=== PATIENT | male | born 1975 | race Caucasian/White ===

== ENCOUNTER 2020-01-22 08:01 | Day surgery (SDC) | payer OTHER ==
[2020-01-20 12:12] VITALS: BMI 25.7
[~2020-01-22 08:01] MED LIST: LACTATED RINGERS 1,000 ML IV SCH
[2020-01-22 08:22] VITALS: RESP 16; TEMP 97.6
[2020-01-22] MEDS ORDERED: LIDOCAINE 1% (10MG/ML) FOR IV START INTRADERMA ONE (08:29)
[2020-01-22] MEDS ORDERED: PROPOFOL 10 MG/ML 20 ML VIAL IV ONE (09:10)
[2020-01-22] MEDS ORDERED: LIDOCAINE 1% INJ 10MG/ML (20 ML MDV) ONE (09:10)
--- NOTE | 2020-01-22 09:25 | P.PCN ---
Date of Procedure: 01/22/20 Procedure(s) Performed: BRIEF HISTORY: Patient is a 45-year-old pleasant male scheduled for an elective colonoscopy as a part of evaluation of intermittent rectal bleeding for the last few months duration. PROCEDURE PERFORMED: Colonoscopy with snare polypectomy. PREOPERATIVE DIAGNOSIS: Intermittent rectal bleeding. IV sedation per Anesthesia. PROCEDURE: After informed consent was obtained, the patient, was brought into the endoscopy unit. IV sedation was administered by Anesthesia under continuous monitoring. Digital rectal examination was normal. Initially the Olympus CF-160 flexible video colonoscope was then inserted in the rectum, gradually advanced into the cecum without any difficulty. Careful examination was performed as the scope was gradually being withdrawn. Ileocecal valve and the appendiceal orifice were visualized and appeared normal. Prep was excellent. The base of cecum there was a 7 mm polyp that was removed by snare polypectomy. Mucosa of the cecum, ascending colon, transverse colon, descending colon, sigmoid colon, and rectum appeared normal. The rectum there was a 3 mm polyp that was removed by snare polypectomy. Retroflexion was performed in the rectum and all internal hemorrhoids were seen. The patient tolerated the procedure well. IMPRESSION: 7 mm cecal polyp status post polypectomy 5 mm rectal polyp status post polypectomy Small internal hemorrhoids RECOMMENDATIONS: Findings of this examination were discussed with the patientas well as a family. Was advised to follow with the biopsy results. If the biopsy shows an adenoma he can have a repeat colonoscopy in 5 years].
[2020-01-22 09:46] VITALS: BP 128/83; PULSE 59
== END 2020-01-22 10:02 | disposition home or self-care (01) ==
LOC: ORWHC2ENDO 08:01
PROVIDERS: ATTEND Internal Medicine Gastroenterology
DX: D12.0 Benign neoplasm of cecum (principal); K62.1 Rectal polyp; K64.8 Other hemorrhoids; I10 Essential (primary) hypertension; Z79.899 Other long term (current) drug therapy; Z88.6 Allergy status to analgesic agent
CPT/HCPCS: 88305; 45385; J2001; J2704

== ENCOUNTER 2020-02-18 09:07 | Observation (INO) | payer OTHER ==
[2020-02-18 09:42] LABS: Basophils % (A) 1 %; Eosinophils # (A) 0.1 k/uL (0-0.7); Eosinophils % (A) 2 %; HCT 45.5 % (39.0-53.0); HGB 15.4 gm/dL (13.0-17.5); Lymphocytes # (A) 0.5 k/uL (1.0-4.8); Lymphocytes % (A) 7 %; MCH 30.9 pg (25.0-35.0); MCV 91.1 fL (80.0-100.0); Mean Platelet Volume 6.6; Monocytes # (A) 0.2 k/uL (0-1.0); Monocytes % (A) 3 %; Neutrophils # (A) 6.6 k/uL (1.3-7.7); Neutrophils % (A) 88 %; Platelet Count 175 k/uL (150-450); RBC 4.99 m/uL (4.30-5.90); RDW 13.1 % (11.5-15.5); WBC 7.5 k/uL (3.8-10.6)
--- NOTE | 2020-02-18 09:47 | XR ---
EXAMINATION TYPE: XR chest 2V DATE OF EXAM: 02/18/2020 COMPARISON: NONE HISTORY: Shortness of breath and chest pain. TECHNIQUE: Frontal and lateral views of the chest are obtained. FINDINGS: Overlying EKG leads. There is no focal air space opacity, pleural effusion, or pneumothora x seen. The cardiac silhouette size is within normal limits. The osseous structures are intact. IMPRESSION: No acute cardiopulmonary process.
[2020-02-18 09:52] LABS: ALT 47 U/L (4-49); AST 37 U/L (17-59); African American GFR (CKD) >90 (>60 ml/min/1.73 sqM); Albumin 4.6 g/dL (3.5-5.0); Alkaline Phosphatase 58 U/L (38-126); Anion Gap 6 mmol/L; Blood Urea Nitrogen 20 mg/dL (9-20); Calcium 9.4 mg/dL (8.4-10.2); Carbon Dioxide 33 mmol/L (22-30); Chloride 99 mmol/L (98-107); Glucose 108 mg/dL (74-99); Lipase 116 U/L (23-300); Non-African American GFR(CKD) 78 (>60 ml/min/1.73 sqM); Potassium 3.9 mmol/L (3.5-5.1); Sodium 138 mmol/L (137-145); Total Bilirubin 0.7 mg/dL (0.2-1.3); Total Protein 7.3 g/dL (6.3-8.2)
--- NOTE | 2020-02-18 10:08 | ED ---
Chest Pain HPI - General Chief Complaint: Chest Pain Stated Complaint: Chest Pain, Nausea Time Seen by Provider: 02/18/20 09:13 Source: patient, RN notes reviewed Mode of arrival: ambulatory Limitations: no limitations - History of Present Illness Initial Comments: 45-year-old male presents emergency Department with chief complaint of chest pain. Patient states it started at 7 AM. Patient states he started a sudden onset of of sharp pressure-like pain left-sided distress. Patient states that he became very diaphoretic nauseated and felt short of breath at that time. He still has mild pain but states his shortness of breath has resolved. Patient does have a history of hypertension which she takes 5 mg of amlodipine denies any history of diabetes, hyperlipidemia is a nonsmoker. There is some family heart disease noted. Patient had no prior stress test. Patient states is an ALLERGY to aspirin. - Related Data Home Medications Medication Instructions Recorded Confirmed Dextroamphetamine/Amphetamine 30 mg PO DAILY 01/20/20 02/18/20 [Adderall] amLODIPine [Norvasc] 5 mg PO HS 01/20/20 02/18/20 Calcium/Magnesium/Zinc 1 tab PO DAILY 02/18/20 02/18/20 [Padovpu-Nuqfunjba-Ehrm Tablet] Cholecalciferol [Vitamin D3 (25 1,000 unit PO DAILY 02/18/20 02/18/20 Mcg = 1000 Iu)] Multivitamins, Thera [Multivitamin 1 tab PO DAILY 02/18/20 02/18/20 (formulary)] Allergies Allergy/AdvReac Type Severity Reaction Status Date / Time aspirin Allergy Unknown Verified 02/18/20 09:53 Childhood Review of Systems ROS Statement: Those systems with pertinent positive or pertinent negative responses have been documented in the HPI. ROS Other: All systems not noted in ROS Statement are negative. EKG Findings - EKG Comments: EKG Findings:: EKG performed at 9:19 normal sinus rhythm rate of 68. 170 QS 98 QT/QTC 424/[address] elevation or depression. Past Medical History Past Medical History: Hypertension Additional Past Medical History / Comment(s): ABD. PAIN WITH SOME BLOOD IN STOOL History of Any Multi-Drug Resistant Organisms: None Reported Additional Past Surgical History / Comment(s): HX FACIAL FX TO CHEEK BONE Past Anesthesia/Blood Transfusion Reactions: No Reported Reaction Past Psychological History: ADD/ADHD Smoking Status: Never smoker Past Alcohol Use History: None Reported Past Drug Use History: None Reported - Past Family History Father Family Medical History: Cancer Son(s) Family Medical History: Cancer General Exam Limitations: no limitations General appearance: alert, in no apparent distress Head exam: Present: atraumatic, normocephalic, normal inspection Eye exam: Present: normal appearance, PERRL, EOMI. Absent: scleral icterus, conjunctival injection, periorbital swelling ENT exam: Present: normal exam, normal oropharynx, mucous membranes moist Neck exam: Present: normal inspection, full ROM. Absent: tenderness, meningismus, lymphadenopathy Respiratory exam: Present: normal lung sounds bilaterally. Absent: respiratory distress, wheezes, rales, rhonchi, stridor Cardiovascular Exam: Present: regular rate, normal rhythm, normal heart sounds. Absent: systolic murmur, diastolic murmur, rubs, gallop, clicks GI/Abdominal exam: Present: soft, normal bowel sounds. Absent: distended, tenderness, guarding, rebound, rigid Extremities exam: Absent: pedal edema, calf tenderness Neurological exam: Present: alert, oriented X3 Skin exam: Present: warm, dry, intact, normal color. Absent: rash Course Vital Signs 02/18/20 09:09 Temperature 98.5 F Pulse Rate 74 Respiratory 18 Rate Blood Pressure 131/79 O2 Sat by Pulse 100 Oximetry Chest Pain MDM - MDM 45-year-old presented for chest pain EKG is a unremarkable, first troponin is negative though symptoms started 2 hours prior arrival. Patient does have risk factors. Patient will be kept for cardiac rule out, cardiology evaluation, echocardiogram Disposition Clinical Impression: Chest pain Disposition: ADMITTED IP TO THIS HOSP Condition: Fair Referrals: Afshin Cao MD [Primary Care Provider] - 1-2 days
[2020-02-18 10:10] LABS: D-Dimer 0.31 mg/L FEU (<0.60); INR 0.9 (<1.2); Partial Thromboplastin Time 22.1 sec (22.0-30.0); Prothrombin Time 9.6 sec (9.0-12.0)
[2020-02-18] MEDS ORDERED: HEPARIN SODIUM,PORCINE 5,000 UNIT/ML 1 ML VIAL IV PRN (10:35)
[2020-02-18] MEDS ORDERED: HEPARIN SODIUM,PORCINE 5,000 UNIT/ML 1 ML VIAL IV ONE (10:35)
[2020-02-18] MEDS ORDERED: NITROGLYCERIN SL TABS 0.4 MG TAB SUBLINGUAL PRN (10:35)
[2020-02-18] MEDS ORDERED: HEPARIN SOD,PORK IN 0.45% NACL 25,000 UNIT in 0.45% NACL 1 250ML.BAG IV SCH (10:45)
[2020-02-18 11:19] VITALS: RESP 16; TEMP 98.1
--- NOTE | 2020-02-18 12:11 | P.CRDCN ---
History of Present Illness History of present illness: HISTORY OF PRESENTING ILLNESS This is a pleasant 45-year-old male past medical history significant for hypertension, ADD and family history of coronary artery disease. He states his dad has had a couple of stents starting in his mid 60s.. 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 We have been asked to see in consultation for chest pain. He states he woke up this morning in his usual state of health and ate 2 hard boiled eggs and 2 sausage links. About 30-40 minutes later he had an acute onset of intense tight and sharp pain under his left breast associated with nausea, shortness of breath and diaphoresis. He states he had to curl up into a ball the pain was so intense. He drank a combination of baking soda and water. Slowly over the next 30 minutes he belched a few times and his discomfort started to subside. Since that time he feels a vague ache in the chest at times. He is resting comfortably lying flat in bed in no acute distress. He states he runs up to 5 miles per day regularly and denies ever having symptoms of chest pain or shortness of breath with exertion. DIAGNOSTICS EKG reveals sinus mechanism heart rate of 68 with nonspecific abnormalities.. Telemetry tracings indicate sinus mechanism with no acute arrhythmias. Chest xray negative for an acute cardiopulmonary process. Laboratory reviewed, CBC unremarkable, d-dimer 0.31, sodium 138, potassium 3.9, creatinine 1.13, magnesium 2.0 and troponin negative 1. Current cardiac medications include amlodipine 5 mg at bedtime. REVIEW OF SYSTEMS At the time of my exam: CONSTITUTIONAL: Denies fever or chills. CARDIOVASCULAR: Denies chest pain, shortness of breath, orthopnea, PND or palpitations. RESPIRATORY: Denies cough. GASTROINTESTINAL: Denies abdominal pain, diarrhea, constipation, nausea or vomiting. MUSCULOSKELETAL: Denies myalgias. NEUROLOGIC: Denies numbness, tingling or weakness. ENDOCRINE: Denies fatigue, weight change, polydipsia or polyurina. GENITOURINARY: Denies burning, hematuria or urgency with micturation. HEMATOLOGIC: Denies history of anemia or bleeding. PHYSICAL EXAMINATION Blood pressure 137/75 heart rate 67 afebrile and maintaining oxygen saturation on room air. CONSTITUTIONAL: No apparent distress. HEENT: Head is normocephalic. Pupils are equal, round. Sclerae anicteric. Mucous membranes of the mouth are moist. No JVD. No carotid bruit. CHEST EXAMINATION: Lungs are clear to auscultation. No chest wall tenderness is noted on palpation or with deep breathing. HEART EXAMINATION: Regular rate and rhythm. S1, S2 heard. No murmurs, gallops or rub. ABDOMEN: Soft, nontender. Positive bowel sounds. EXTREMITIES: 2+ peripheral pulses, no lower extremity edema and no calf tenderness. NEUROLOGIC EXAMINATION: Patient is awake, alert and oriented x3. ASSESSMENT Chest pain, atypical for angina Hypertension Attention deficit disorder PLAN Pain is atypical for angina. Clinically it sounds like GI in etiology. Continue to obtain serial cardiac enzymes to rule out an acute event. Obtain 2D echocardiogram and doppler study to assess cardiac structure and function. Advised the patient to eat lunch and increase activity and assess for reoccurrence of pain. If echo is normal and troponins are negative, he can be discharged this afternoon to follow up in the office for outpatient stress test with Dr. Chen. Thank you kindly for this consultation. Nurse Practitioner note has been reviewed, I agree with a documented findings and plan of care. Patient was seen and examined. Past Medical History Past Medical History: Hypertension Additional Past Medical History / Comment(s): ABD. PAIN WITH SOME BLOOD IN STOOL ,. takes adderal for ADD, runs 5 miles per day. Family history of CAD after age 65 History of Any Multi-Drug Resistant Organisms: None Reported Additional Past Surgical History / Comment(s): HX FACIAL FX TO CHEEK BONE- 1993. Colonoscopy 2019 Past Anesthesia/Blood Transfusion Reactions: No Reported Reaction Past Psychological History: ADD/ADHD Smoking Status: Never smoker Past Alcohol Use History: None Reported Past Drug Use History: None Reported - Past Family History Father Family Medical History: Cancer, Hypertension Additional Family Medical History / Comment(s): testicular,. coronary stents Son(s) Family Medical History: Cancer Additional Family Medical History / Comment(s): testicular Medications and Allergies Home Medications Medication Instructions Recorded Confirmed Type Dextroamphetamine/Amphetamine 30 mg PO DAILY 01/20/20 02/18/20 History [Adderall] amLODIPine [Norvasc] 5 mg PO HS 01/20/20 02/18/20 History Calcium/Magnesium/Zinc 1 tab PO DAILY 02/18/20 02/18/20 History [Ibrdbcb-Yhbwwnzvn-Trxb Tablet] Cholecalciferol [Vitamin D3 (25 1,000 unit PO DAILY 02/18/20 02/18/20 History Mcg = 1000 Iu)] Multivitamins, Thera [Multivitamin 1 tab PO DAILY 02/18/20 02/18/20 History (formulary)] Allergies Allergy/AdvReac Type Severity Reaction Status Date / Time aspirin Allergy Unknown Verified 02/18/20 09:53 Childhood Physical Exam Vitals: Vital Signs Temp Pulse Pulse Resp BP BP Pulse Ox 02/18/20 11:18 98.1 F 67 16 137/75 100 02/18/20 11:01 98.5 F 70 18 128/72 100 02/18/20 09:09 98.5 F 74 18 131/79 100 Intake and Output 02/17/20 02/18/20 02/18/20 22:59 06:59 14:59 Other: Weight 88.451 kg Results 02/18/20 09:32 02/18/20 09:32 Cardiac Enzymes 02/18/20 02/18/20 Range/Units 09:32 09:32 AST 37 (17-59) U/L Troponin I <0.012 (0.000-0.034) ng/mL Coagulation 02/18/20 Range/Units 09:32 PT 9.6 (9.0-12.0) sec APTT 22.1 (22.0-30.0) sec CBC 02/18/20 Range/Units 09:32 WBC 7.5 (3.8-10.6) k/uL RBC 4.99 (4.30-5.90) m/uL Hgb 15.4 (13.0-17.5) gm/dL Hct 45.5 (39.0-53.0) % Plt Count 175 (150-450) k/uL Comprehensive Metabolic Panel 02/18/20 Range/Units 09:32 Sodium 138 (137-145) mmol/L Potassium 3.9 (3.5-5.1) mmol/L Chloride 99 (98-107) mmol/L Carbon Dioxide 33 H (22-30) mmol/L BUN 20 (9-20) mg/dL Creatinine 1.13 (0.66-1.25) mg/dL Glucose 108 H (74-99) mg/dL Calcium 9.4 (8.4-10.2) mg/dL AST 37 (17-59) U/L ALT 47 (4-49) U/L Alkaline Phosphatase 58 (38-126) U/L Total Protein 7.3 (6.3-8.2) g/dL Albumin 4.6 (3.5-5.0) g/dL Current Medications Generic Name Dose Route Start Last Admin Trade Name Freq PRN Reason Stop Dose Admin Heparin Sodium (Porcine) 0 unit 02/18/20 10:35 Heparin Sodium,Porcine 5,000 Unit/Ml 1 Ml Vial IV Q6HR PRN Low PTT Protocol Heparin Sodium/Sodium Chloride 250 mls @ 9.995 mls/hr 02/18/20 10:45 02/18/20 10:57 25,000 unit/ Sodium Chloride IV 11.3 units/kg/hr .Q24H KENYON 9.995 mls/hr Administration Protocol 11.3 UNITS/KG/HR Nitroglycerin 0.4 mg 02/18/20 10:35 Nitroglycerin Sl Tabs 0.4 Mg Tab SUBLINGUAL Q5M PRN Chest Pain Intake and Output 02/17/20 02/18/20 02/18/20 22:59 06:59 14:59 Other: Weight 88.451 kg Patient Weight 02/19/20 06:59 Weight 88.451 kg 02/18/20 09:32 02/18/20 09:32
--- NOTE | 2020-02-18 13:12 | ECHOF ---
Referral Reason:cp MEASUREMENTS -------- HEIGHT: 185.4 cm WEIGHT: 88.5 kg BP: 137/75 RVIDd: 3.7 cm (< 3.3) IVSd: 1.6 cm (0.6 - 1.1) LVIDd: 5.0 cm (3.9 - 5.3) LVPWd: 1.3 cm (0.6 - 1.1) IVSs: 1.8 cm LVIDs: 3.2 cm LVPWs: 1.7 cm LAESV Index (A-L): 22.12 ml/m Ao Diam: 2.9 cm (2.0 - 3.7) AV Cusp: 2.3 cm (1.5 - 2.6) MV EXCURSION: 19.132 mm (> 18.000) MV EF SLOPE: 58 mm/s (70 - 150) EPSS: 0.6 cm MV E Dion: 0.80 m/s MV DecT: 280 ms MV A Dion: 0.80 m/s MV E/A Ratio: 1.01 RAP: 5.00 mmHg RVSP: 16.88 mmHg FINDINGS -------- Sinus rhythm. This was a technically adequate study. The left ventricular size is normal. There is moderate concentric left ventricular hypertrophy. O verall left ventricular systolic function is normal with, an EF between 55 - 60 %. The diastolic fi lling pattern is normal for the age of the patient 9.03. The right ventricle is mildly enlarged. Normal LA size by volume 22+/-6 ml/m2. The right atrium is mildly enlarged. Interatrial and interventricular septum intact. The aortic valve is trileaflet and appears structurally normal. There is no evidence of aortic regu rgitation. There is no evidence of aortic stenosis. Mild mitral regurgitation is present. Mild tricuspid regurgitation present. There is no evidence of pulmonary hypertension. The right v entricular systolic pressure, as measured by Doppler, is 16.88mmHg. There is no pulmonic regurgitation present. The aortic root size is normal. Normal inferior vena cava with normal inspiratory collapse consistent with estimated right atrial pre ssure of 5 mmHg. There is no pericardial effusion. CONCLUSIONS -------- 1. The left ventricular size is normal. 2. There is moderate concentric left ventricular hypertrophy. 3. Overall left ventricular systolic function is normal with, an EF between 55 - 60 %. 4. The diastolic filling pattern is normal for the age of the patient 9.03 5. The right ventricle is mildly enlarged. 6. The right atrium is mildly enlarged. 7. Mild mitral regurgitation is present. 8. Mild tricuspid regurgitation present. ONCOLOGY NURSE NAVIGATOR: Masha Winter RDCS
[2020-02-18 15:18] LABS: Cholesterol 233 mg/dL (<200); HDL Cholesterol 52 mg/dL (40-60); LDL Cholesterol,Calculated 123 mg/dL (0-99); Triglycerides 290 mg/dL (<150)
[2020-02-18 15:24] VITALS: BP 121/78; PULSE 70
--- NOTE | 2020-02-18 19:45 | P.HPIM ---
History of Present Illness H&P Date: 02/18/20 Chief Complaint: Chest tightness History of presenting complaint: This is a very pleasant 45-year-old patient who follows with Dr. bravo out of [place]. Chronic stable medical conditions include hypertension, ADHD. Patient this morning 7:00 AM, just finished breakfast including 2 boiled eggs and 2 sausages links. Patient felt extremely nauseated. Broke out into a heavy sweat. Had chest tightness. Some shortness of breath and squeezing sensation in the chest. He took some baking soda. Last about 45 minutes. Patient is very active and runs about 5 miles a day. Maybe once or twice a month he'll get reflux symptoms. Otherwise in good shape. No prior cardiac history. Review of systems: GEN.: None EYES: None HEENT: None NECK: None RESPIRATORY: As above CARDIOVASCULAR: As above GASTROINTESTINAL: As above GENITOURINARY: None MUSCULOSKELETAL: None LYMPHATICS: None HEMATOLOGICAL: None PSYCHIATRY: None NEUROLOGICAL: None Past medical history to include: Hypertension, ADD, Social history: . 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 No smoking. Alcohol rarely. Family history: Positive for coronary artery disease Physical examination: VITAL SIGNS: 98.5, 74, 18, 131/79, 100% room air GENERAL: BMI 25.7, sitting up in bed, comfortable. EYES: Pupils equal. Conjunctiva normal. HEENT: External appearance of nose and ears normal, oral cavity grossly normal. NECK: JVD not raised; masses not palpable. HEART: First and second heart sounds are normal; no edema. LUNGS: Respiratory rate normal; clear to auscultation. ABDOMEN: Soft, nontender, liver spleen not palpable, no masses palpable. PSYCH: Alert and oriented x3; mood and affect normal. NEUROLOGICAL: Cranial nerves grossly intact; no facial asymmetry, power and sensation grossly intact. LYMPHATICS: No lymph nodes palpable in the axilla and neck INVESTIGATIONS, reviewed in the clinical context: White count 7.5 hemoglobin 15.4 platelets 175 potassium 3.9 creatinine 1.13 Troponin I 3 negative LDL 123 EKG tracing personally reviewed by me-normal sinus rhythm Chest x-ray film personally reviewed by me-lung lynn clear 2-D echocardiogram-moderate concentric LVH, EF 55-60% Assessment: -Anterior chest wall pain. Rule out cardiac cause -GERD-occasionally -Essential hypertension -Hypertensive heart disease -ADHD Plan: Cardiology was consulted. Order 2-D echocardiogram. Home medications resumed. Past Medical History Past Medical History: Hypertension Additional Past Medical History / Comment(s): ABD. PAIN WITH SOME BLOOD IN STOOL,. takes adderal for ADD, runs 5 miles per day. Family history of CAD af ter age 65 History of Any Multi-Drug Resistant Organisms: None Reported Additional Past Surgical History / Comment(s): HX FACIAL FX TO CHEEK BONE- . Colonoscopy 2019 Past Anesthesia/Blood Transfusion Reactions: No Reported Reaction Past Psychological History: ADD/ADHD Smoking Status: Never smoker Past Alcohol Use History: None Reported Past Drug Use History: None Reported - Past Family History Father Family Medical History: Cancer, Hypertension Additional Family Medical History / Comment(s): testicular,. coronary stents Son(s) Family Medical History: Cancer Additional Family Medical History / Comment(s): testicular Medications and Allergies Home Medications Medication Instructions Recorded Confirmed Type Dextroamphetamine/Amphetamine 30 mg PO DAILY 01/20/20 02/18/20 History [Adderall] amLODIPine [Norvasc] 5 mg PO HS 01/20/20 02/18/20 History Calcium/Magnesium/Zinc 1 tab PO DAILY 02/18/20 02/18/20 History [Rcionji-Zdryinxmq-Vdoc Tablet] Cholecalciferol [Vitamin D3 (25 1,000 unit PO DAILY 02/18/20 02/18/20 History Mcg = 1000 Iu)] Multivitamins, Thera [Multivitamin 1 tab PO DAILY 02/18/20 02/18/20 History (formulary)] Allergies Allergy/AdvReac Type Severity Reaction Status Date / Time aspirin Allergy Unknown Verified 02/18/20 09:53 Childhood Physical Exam Vitals: Vital Signs Temp Pulse Pulse Resp BP BP Pulse Ox 02/18/20 15:00 98.1 F 70 16 121/78 100 02/18/20 11:30 16 02/18/20 11:18 98.1 F 67 16 137/75 100 02/18/20 11:01 98.5 F 70 18 128/72 100 02/18/20 09:09 98.5 F 74 18 131/79 100 Intake and Output 02/18/20 02/18/20 02/18/20 06:59 14:59 22:59 Intake Total 100 200 Balance 100 200 Intake: Oral 100 200 Other: # Voids 1 Weight 88.451 kg Results CBC & Chem 7: 02/18/20 09:32 02/18/20 09:32 Labs: Abnormal Lab Results - Last 24 Hours (Table) 02/17/20 02/18/20 02/18/20 Range/Units 09:32 09:32 09:32 Lymphocytes # 0.5 L (1.0-4.8) k/uL Carbon Dioxide 33 H (22-30) mmol/L Glucose 108 H (74-99) mg/dL Triglycerides 290 H (<150) mg/dL Cholesterol 233 H (<200) mg/dL LDL Cholesterol, Calc 123 H (0-99) mg/dL Thrombosis Risk Factor Assmnt - Choose All That Apply Each Factor Represents 1 point: Age 41-60 years, Obesity (BMI >25) Other Risk Factors: No Other congenital or acquired thrombophilia - If yes, enter type in comment: No Thrombosis Risk Factor Assessment Total Risk Factor Score: 2 Thrombosis Risk Factor Assessment Level: Low Risk
--- NOTE | 2020-02-18 19:49 | P.DS ---
Providers Date of admission: 02/18/20 10:35 Expected date of discharge: 02/18/20 Attending physician: Heriberto Brown Consults: 02/18/20 10:35 Consult Physician Urgent Consulting Provider: Hamlet Lyons Consult Reason/Comments: chest pain Do you want consulting provider notified?: Yes Primary care physician: Afshin Cao MD Hospital Course: Chief Complaint: Chest tightness History of presenting complaint: This is a very pleasant 45-year-old patient who follows with Dr. cao out of [place]. Chronic stable medical conditions include hypertension, ADHD. Patient this morning 7:00 AM, just finished breakfast including 2 boiled eggs and 2 sausages links. Patient felt extremely nauseated. Broke out into a heavy sweat. Had chest tightness. Some shortness of breath and squeezing sensation in the chest. He took some baking soda. Last about 45 minutes. Patient is very active and runs about 5 miles a day. Maybe once or twice a month he'll get reflux symptoms. Otherwise in good shape. No prior cardiac history. Patient seen by cardiology. patient to be discharged and follow-up as an outpatient stress test. Care was discussed with the patient. Consultation: Dr. Chen from cardiology Physical examination: VITAL SIGNS: 98.1, 70, 16, 121/78, 100% on room air GENERAL: BMI 25.7, sitting up , comfortable. EYES: Pupils equal. Conjunctiva normal. NECK: JVD not raised; masses not palpable. HEART: First and second heart sounds are normal; no edema. LUNGS: Respiratory rate normal; clear to auscultation. ABDOMEN: Soft, nontender, liver spleen not palpable, no masses palpable. PSYCH: Alert and oriented x3; mood and affect normal. INVESTIGATIONS, reviewed in the clinical context: White count 7.5 hemoglobin 15.4 platelets 175 potassium 3.9 creatinine 1.13 Troponin I 3 negative LDL 123 EKG tracing personally reviewed by me-normal sinus rhythm Chest x-ray film personally reviewed by me-lung lynn clear 2-D echocardiogram-moderate concentric LVH, EF 55-60% Assessment: -Anterior chest wall pain. Could be a sufficient spasm -GERD-occasionally -Essential hypertension -Hypertensive heart disease -ADHD Disposition: Home Patient Condition at Discharge: Stable Plan - Discharge Summary New Discharge Prescriptions: Continue amLODIPine [Norvasc] 5 mg PO HS Dextroamphetamine/Amphetamine [Adderall] 30 mg PO DAILY Multivitamins, Thera [Multivitamin (formulary)] 1 tab PO DAILY Cholecalciferol [Vitamin D3 (25 Mcg = 1000 Iu)] 1,000 unit PO DAILY Calcium/Magnesium/Zinc [Ruggnjo-Hbnzsxgko-Mlex Tablet] 1 tab PO DAILY Discharge Medication List Dextroamphetamine/Amphetamine [Adderall] 30 mg PO DAILY 01/20/20 [History] amLODIPine [Norvasc] 5 mg PO HS 01/20/20 [History] Calcium/Magnesium/Zinc [Weobwcg-Sozkdhefc-Vqyy Tablet] 1 tab PO DAILY 02/18/20 [History] Cholecalciferol [Vitamin D3 (25 Mcg = 1000 Iu)] 1,000 unit PO DAILY 02/18/20 [History] Multivitamins, Thera [Multivitamin (formulary)] 1 tab PO DAILY 02/18/20 [History] Follow up Appointment(s)/Referral(s): Fer Chen DO [STAFF PHYSICIAN] - 1 Week (Cardiology office will call with appointment time ) Afshin Cao MD [Primary Care Provider] - 02/29/20 4:00 pm Patient Instructions/Handouts: Chest Pain (DC), Heart Healthy Diet (DC) Discharge Disposition: HOME SELF-CARE
== END 2020-02-18 17:57 | disposition home or self-care (01) ==
LOC: EC 09:07 → 1SOBS 10:35
PROVIDERS: ADMIT Hospitalist; ATTEND Hospitalist
DX: R07.89 Other chest pain (principal); I11.9 Hypertensive heart disease without heart failure; R06.02 Shortness of breath; R11.0 Nausea; R61 Generalized hyperhidrosis; F90.9 Attention-deficit hyperactivity disorder, unspecified type; K21.9 Gastro-esophageal reflux disease without esophagitis; E66.9 Obesity, unspecified; Z68.25 Body mass index [BMI] 25.0-25.9, adult; Z79.899 Other long term (current) drug therapy; Z88.6 Allergy status to analgesic agent; Z87.19 Personal history of other diseases of the digestive system; Z87.81 Personal history of (healed) traumatic fracture; Z80.43 Family history of malignant neoplasm of testis; Z82.49 Family history of ischemic heart disease and other diseases of the circulatory system
CPT/HCPCS: 96374; 99285; 36415; 93005; 93306; 85379; 80061; 80053; 83690; 83735; 84484; 85025; 85610; 85730; 71046; G0378; J1644 ×2

== ENCOUNTER → 2022-11-15 | Outpatient (CLI) | payer OTHER ==
[2022-11-15 20:54] LABS: HCT 44.6 % (39.6-50.0); HGB 14.7 d/dL (13.0-17.0); MCH 28.9 pg (27.0-32.0); MCV 87.8 FL (80.0-97.0); Mean Platelet Volume 9.8 FL (9.5-12.2); NRBC Per 100 WBC 0 X 10*3/uL (0.00-0.01); Platelet Count 228 X 10*3/uL (140-440); RBC 5.08 X 10*6/uL (4.40-5.60); RDW 13.2 % (11.5-14.5); WBC 6.07 X 10*3/uL (4.50-10.00)
== END | disposition home or self-care (01) ==
LOC: LABWHC1 12:46
PROVIDERS: ATTEND Nurse Practitioner Family
DX: K62.5 Hemorrhage of anus and rectum (principal)
CPT/HCPCS: 36415; 85027

== ENCOUNTER 2023-06-07 11:26 | Day surgery (SDC) | payer OTHER ==
[2023-06-05 09:16] VITALS: BMI 28.2
[2023-06-07] MEDS ORDERED: LIDOCAINE 1% (10MG/ML) FOR IV START INTRADERMA PRN (11:54)
[2023-06-07 12:13] VITALS: TEMP 98.2
[2023-06-07] MEDS: LACTATED RINGERS 1,000 ML IV SCH (12:15)
[2023-06-07] MEDS ORDERED: PROPOFOL 10 MG/ML 20 ML VIAL IV ONE (12:48)
--- NOTE | 2023-06-07 13:05 | P.PCN ---
Date of Procedure: 06/07/23 Procedure(s) Performed: BRIEF HISTORY: Patient is a 48-year-old pleasant white male scheduled for an elective colonoscopy as a part of he should've intermittent rectal bleeding for the last 6 months duration. PROCEDURE PERFORMED: Colonoscopy. PREOPERATIVE DIAGNOSIS: Iintermittent rectal bleeding. IV sedation per Anesthesia. PROCEDURE: After informed consent was obtained, the patient, was brought into the endoscopy unit. IV sedation was administered by Anesthesia under continuous monitoring. Digital rectal examination was normal. Initially the Olympus CF-160 flexible video colonoscope was then inserted in the rectum, gradually advanced into the cecum without any difficulty. Careful examination was performed as the scope was gradually being withdrawn. Ileocecal valve and the appendiceal orifice were visualized and appeared normal. Prep was excellent. Mucosa of the cecum, ascending colon, transverse colon, descending colon, sigmoid colon, and rectum appeared normal. Retroflexion was performed in the rectum and grade 2 internal hemorrhoids were seen. The patient tolerated the procedure well. IMPRESSION: Normal-appearing colon from rectum to cecum no evidence of colorectal neoplasia. Grade 2 internal hemorrhoids. RECOMMENDATIONS: Findings of this examination were discussed with the patient aS WELL HIS FAMILY. hE WAS ADVISED TO BE A HIGH-FIBER DIET AND TAKE FIBER SUPPLEMENTS A REGULAR BASIS. RECOMMEND REPEAT COLONOSCOPY IN 10 YEARS..
[2023-06-07 13:34] VITALS: RESP 18
[2023-06-07 14:14] VITALS: BP 117/80; PULSE 75
== END 2023-06-07 13:51 | disposition home or self-care (01) ==
LOC: ORWHC2ENDO 11:26
PROVIDERS: ATTEND Internal Medicine Gastroenterology
DX: K64.1 Second degree hemorrhoids (principal); I10 Essential (primary) hypertension; F90.9 Attention-deficit hyperactivity disorder, unspecified type; Z88.6 Allergy status to analgesic agent; Z79.899 Other long term (current) drug therapy; Z86.010 Personal history of colon polyps
CPT/HCPCS: 45378; J2704